=== PATIENT | female | born 1960 | race Caucasian/White ===

== ENCOUNTER 2018-09-02 08:31 | Outpatient (CLI) | payer BC ==
--- NOTE | 2018-09-02 10:55 | CT ---
CT ABDOMEN WITH IV CONTRAST: 09/02/2018 PROVIDED CLINICAL HISTORY: Left upper quadrant pain. FINDINGS: The visualized lung bases are free of significant opacity. 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 The liver, spleen, pancreas, kidneys, and adrenal glands demonstrate an unremarkable CT appearance. There is no bowel dilatation, inflammatory fat stranding, free fluid, or lymph node enlargement appar ent. There is no evidence for abdominal wall hernia. The osseous structures demonstrate no concerning lytic or blastic lesions. IMPRESSION: No evidence for an acute process. POS: ROH
== END 2018-09-02 08:32 | disposition home or self-care (01) ==
LOC: SCSCT 08:31
PROVIDERS: ATTEND Surgery
DX: K43.2 Incisional hernia without obstruction or gangrene (principal)
CPT/HCPCS: 74160

== ENCOUNTER 2019-04-26 15:39 | Outpatient (CLI) | payer BC ==
[2019-04-26 16:09] LABS: CRP (Inflammatory) 0.79 mg/dL (= or < 0.5)
[2019-04-26 16:24] LABS: #Basophils 0.1 thou/uL (0.0-0.2); #Eosinphils 0.2 thou/uL (0.0-0.7); #Monocytes 0.5 thou/uL (0.11-0.59); #Neutrophils 3.9 thou/uL (1.40-6.50); %Basophils 1.1 % (0.0-1.0); %Eosinophils 2.7 % (0.0-10.0); %Lymphocytes 29.6 % (21.0-51.0); %Monocytes 8.2 % (0.0-10.0); %Neutrophils 58.4 % (42.0-75.0); Hemoglobin 12.4 g/dL (12.0-16.0); Large Platelets SLIGHT; MDiff Complete? YES; Mean Corpuscular HGB CONC 32.2 g/dL (32.0-36.0); Mean Corpuscular Hemoglobin 28.4 pg (27.0-31.0); Mean Corpuscular Volume 88.1 fL (78.0-98.0); Mean Platelet Volume 12.3 fL (7.4-10.4); Platelet Count 155 thou/uL (130-400); Platelet Morphology Comment Appears Adequate; RBC Distribution Width 11.4 % (11.5-14.5); RBC Morphology Normal; Red Blood Cell (RBC) Count 4.36 mill/uL (4.20-5.40); White Blood Cell (WBC) Count 6.6 thou/uL (4.8-10.8)
--- NOTE | 2019-04-26 17:13 | RAD ---
TWO VIEWS ABDOMEN: 04/26/19 PROVIDED CLINICAL HISTORY: Generalized abdominal pain. FINDINGS: The abdominal bowel gas pattern is nonspecific. No evidence for pneumoperitoneum. No evidence for ra diographically apparent urinary tract calculi. Conspicuous colonic fecal retention suggests constipat ion. IMPRESSION: Nonspecific bowel gas pattern. POS: [facility]
== END 2019-04-26 15:40 | disposition home or self-care (01) ==
LOC: SCSRAD 15:39
PROVIDERS: ATTEND Family Medicine
DX: R10.84 Generalized abdominal pain (principal)
CPT/HCPCS: 36415; 74019; 83690; 85025; 86140

== ENCOUNTER 2019-05-19 10:33 | Outpatient (CLI) | payer BC ==
[~2019-05-19 10:33] MED LIST: Iopamidol 370 76% 100 ML VIAL ONE
--- NOTE | 2019-05-19 12:21 | CT ---
EXAM: CT abdomen and pelvis with IV contrast PROVIDED CLINICAL HISTORY: Abdominal pain COMPARISON: 09/02/2018 FINDINGS: The visualized lung bases are free of significant opacity. Small hiatal hernia redemonstrated. The solid abdominal organs demonstrate an unremarkable CT appearance. There is no bowel dilatation, inflammatory fat stranding, free fluid or free air apparent. There is n o evidence for appendicitis. There is conspicuous colonic and rectal fecal retention, suggesting constipation. No regional lymph node enlargement apparent. Occasional vascular calcifications are seen. The osseous structures demonstrate no concerning lytic or blastic lesions. IMPRESSION: No evidence for an acute process. Findings suggesting constipation.
== END 2019-05-19 10:34 | disposition home or self-care (01) ==
LOC: SCSCT 10:33
PROVIDERS: ATTEND Family Medicine
DX: R10.84 Generalized abdominal pain (principal); Z98.84 Bariatric surgery status
CPT/HCPCS: 74177; Q9967